=== PATIENT | female | born 1980 | race Caucasian/White ===

== ENCOUNTER 2017-12-27 05:40 | Emergency (ER) | payer MEDICAID ==
[~2017-12-27] VITALS: Ht 167.6 cm; Wt 68.0 kg
[2017-12-27 05:48] VITALS: Ht 167.6 cm; Wt 68.0 kg
[2017-12-27 06:49] VITALS: BP 105/67
== END 2017-12-27 06:49 | disposition home or self-care (01) ==
LOC: ED 05:40
DX: H92.01 Otalgia, right ear (principal)

== ENCOUNTER 2019-09-26 06:52 | Emergency (ER) | payer BC ==
[~2019-09-26] VITALS: Ht 165.1 cm; Wt 69.9 kg
[2019-09-26 07:06] VITALS: Ht 165.1 cm; Wt 69.9 kg
[2019-09-26 07:44] LABS: BASOPHIL % 0.1 % (0-2); PLATELET COUNT 168 x10^3mcL (130-400)
[2019-09-26 08:04] LABS: RED CELL DISTRIBUTION WIDTH 14.9 % (11.5-14.5)
[2019-09-26 08:30] LABS: ALKALINE PHOSPHATASE 80 U/L (46-116); ALT/SGPT 35 U/L (14-59); AST/SGOT 23 U/L (15-37); BILIRUBIN TOTAL 0.1 mg/dL (0.20-1.00); CALCIUM 8.2 mg/dL (8.5-10.1); CARBON DIOXIDE 27.2 mmol/L (21-32); CHLORIDE SERUM 104 mmol/L (98-107); CREATININE SERUM 0.8 mg/dL (0.6-1.0); GFR1 > 60 mL/min; GLUCOSE SERUM 116 mg/dL (74-106); POTASSIUM SERUM 3.2 mmol/L (3.5-5.1); SODIUM SERUM 140 mmol/L (136-145); TOTAL PROTEIN, SERUM 7.1 g/dL (6.4-8.2)
[2019-09-26 08:40] LABS: ALBUMIN 3.1 g/dL (3.4-5.0)
[2019-09-26 10:25] VITALS: BP 124/72
== END 2019-09-26 10:25 | disposition home or self-care (01) ==
LOC: ED 06:52
PROVIDERS: Emergency Medicine
DX: R19.7 Diarrhea, unspecified (principal); Z87.19 Personal history of other diseases of the digestive system
CPT/HCPCS: 36415

== ENCOUNTER 2020-03-16 07:02 | Emergency (ER) | payer SELFPAY ==
[~2020-03-16] VITALS: Ht 167.6 cm; Wt 68.0 kg
[2020-03-16 07:24] VITALS: Ht 167.6 cm; Wt 68.0 kg
[2020-03-16 09:21] LABS: BASOPHIL % 0.5 % (0-2); PLATELET COUNT 147 x10^3mcL (130-400); RED CELL DISTRIBUTION WIDTH 14.3 % (11.5-14.5)
[2020-03-16 09:36] LABS: CALCIUM 8.7 mg/dL (8.5-10.1); CARBON DIOXIDE 27.1 mmol/L (21-32); CREATININE SERUM 1.6 mg/dL (0.6-1.0); POTASSIUM SERUM 3.5 mmol/L (3.5-5.1)
[2020-03-16 09:41] LABS: ALBUMIN 3.7 g/dL (3.4-5.0); BILIRUBIN TOTAL 0.7 mg/dL (0.20-1.00); TOTAL PROTEIN, SERUM 7.5 g/dL (6.4-8.2)
[2020-03-16 10:03] LABS: AMPHETAMINE QUAL UR POSITIVE (See below)
[2020-03-16 10:28] LABS: microscopic required? YES; urine erythrocyte NEGATIVE (NEGATIVE)
[2020-03-16 15:05] VITALS: BP 124/82
== END 2020-03-16 16:40 | disposition home or self-care (01) ==
LOC: ED 07:02
PROVIDERS: Emergency Medicine
DX: F10.10 Alcohol abuse, uncomplicated (principal)
CPT/HCPCS: G0480; J1630; J2060

== ENCOUNTER 2020-03-16 07:02 | Emergency (ER) | payer OTHER | END 2020-03-16 16:40 | disposition home or self-care (01) | LOC: ED 07:02 | DX: Z02.89 Encounter for other administrative examinations (principal) | CPT/HCPCS: J7030 ==

== ENCOUNTER 2020-03-16 17:25 | Emergency (ER) | payer SELFPAY ==
[~2020-03-16] VITALS: Ht 165.1 cm; Wt 68.0 kg
[2020-03-16 17:37] VITALS: Ht 165.1 cm; Wt 68.0 kg
[2020-03-16 19:25] VITALS: BP 110/60
== END 2020-03-16 19:25 | disposition home or self-care (01) ==
LOC: ED 17:25
DX: F19.10 Other psychoactive substance abuse, uncomplicated (principal)
CPT/HCPCS: 82962; G0480

== ENCOUNTER 2020-06-10 16:53 | Emergency (ER) | payer MEDICAID ==
[~2020-06-10] VITALS: Ht 162.6 cm; Wt 75.3 kg
[2020-06-10 16:58] VITALS: BP 129/78; Ht 162.6 cm; Wt 75.3 kg
== END 2020-06-10 19:03 | disposition home or self-care (01) ==
LOC: ED 16:53
DX: S66.911A Strain of unspecified muscle, fascia and tendon at wrist and hand level, right hand, initial encounter (principal); F17.210 Nicotine dependence, cigarettes, uncomplicated; Z59.0 Homelessness; R03.0 Elevated blood-pressure reading, without diagnosis of hypertension; X58.XXXA Exposure to other specified factors, initial encounter; Y93.89 Activity, other specified; Y92.89 Other specified places as the place of occurrence of the external cause; Y99.8 Other external cause status
CPT/HCPCS: A4570

== ENCOUNTER 2020-09-01 07:51 | Emergency (ER) | payer SELFPAY | END 2020-09-01 08:11 | disposition left against medical advice (07) | LOC: ED 07:51 | DX: Z53.21 Procedure and treatment not carried out due to patient leaving prior to being seen by health care provider (principal) ==